=== PATIENT | male | born 1940 | race Caucasian/White ===

== ENCOUNTER 2021-06-08 11:18 | Emergency (ER) | payer MEDICARE, OTHER ==
[~2021-06-08] VITALS: Ht 175.3 cm; Wt 72.6 kg
--- NOTE | 2021-06-08 11:25 | NUR ---
Dr Hendrix at the bedside for MSE.
[2021-06-08] MEDS ORDERED: IV NORMAL SALINE 1000 ML BAG IV ONE (11:45)
[2021-06-08 11:50] LABS: HEMATOCRIT 39.1 % (36.7-47.1); MEAN CORPUSCULAR HEMOGLOBIN 22.7 uug (23.8-33.4); MEAN CORPUSCULAR VOLUME 71.4 fL (73.0-96.2); PLATELET COUNT (AUTO) 197 K/uL (152-348)
[2021-06-08 11:58] LABS: *BILIRUBIN,URIN NEGATIVE (NEGATIVE); *BLOOD, URINE NEGATIVE (NEGATIVE); *CLARITY,URINE CLEAR (CLEAR); *COLOR,URINE YELLOW (YELLOW); *KETONES,URINE NEGATIVE (NEGATIVE); LEUKOCYTE ESTERASE ,URINE NEGATIVE (NEGATIVE); NITRITE, URINE NEGATIVE (NEGATIVE); UGLUCOSE NEGATIVE (NEGATIVE)
[2021-06-08 12:29] LABS: BILIRUBIN,DIRECT 0.1 mg/dL (0.0-0.2); BILIRUBIN,TOTAL 0.7 mg/dL (0.2-1.0); CREATININE 0.9 mg/dL (0.6-1.3); POTASSIUM 3.9 mmol/L (3.5-5.1); TOTAL PROTEIN, SERUM 6.8 g/dL (6.4-8.2)
[2021-06-08] MEDS ORDERED: SIMV-46 PO (14:39)
[2021-06-08] MEDS ORDERED: CHOL2000 PO (14:39)
[2021-06-08] MEDS ORDERED: IBUP-1957 PO (14:39)
[2021-06-08] MEDS ORDERED: ASPI81TA31 PO (14:39)
[2021-06-08] MEDS ORDERED: DONE10TA44 PO (14:39)
[2021-06-08] MEDS ORDERED: MEMA10TA PO (14:39)
[2021-06-08] MEDS ORDERED: ONDA-104 PO (14:39)
[2021-06-08] MEDS ORDERED: LOPE-195 PO (14:39)
[2021-06-08] MEDS ORDERED: ACET-73 PO (14:39)
--- NOTE | 2021-06-08 14:58 | NUR ---
pt's called and will come and sp[place] moss picker the pt.
--- NOTE | 2021-06-08 15:00 | NUR ---
Belén ULRICH, from [facility] called to notify me of the pt's ride back. ETA 20 min. Pt ate lunch, watching TV at this time.
--- NOTE | 2021-06-08 15:25 | NUR ---
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 Patient discharged in stable condition. Written and verbal after care instructions given. Stressed follow up or return to ER for worsening s/s. Pt left ER w/ steady gait.
--- NOTE | 2021-06-08 15:30 | NUR ---
IV removed. Catheter intact and site benign. Pressure and 4x4 gauze applied to site. No bleeding noted.
[2021-06-08 15:53] VITALS: BP 149/83
[2021-06-08 17:20] LABS: BAND % (MANUAL) 1 % (0-10); EOSINOPHILS % (MANUAL) 5 % (0-8); LYMPHOCYTES % (MANUAL) 21 % (20-40); METAMYELOCYTES % 3 % (0-1); MONOCYTES % (MANUAL) 11 % (2-10); NEUTROPHILS % (MANUAL) 59 % (42-75)
== END 2021-06-08 15:53 ==
LOC: ER 11:18
DX: R55 Syncope and collapse (principal); G30.9 Alzheimer's disease, unspecified; F02.80 Dementia in other diseases classified elsewhere, unspecified severity, without behavioral disturbance, psychotic disturbance, mood disturbance, and anxiety; Z20.822 Contact with and (suspected) exposure to COVID-19; E78.00 Pure hypercholesterolemia, unspecified
CPT/HCPCS: 36415; 70030-TC; 70450; 71045; 85025; 85730; 93005; A4663; J7030